=== PATIENT | male | born 1985 | race Caucasian/White ===

== ENCOUNTER 2017-03-30 12:03 | Emergency (ER) | payer BC, OTHER ==
[~2017-03-30] VITALS: Ht 167.6 cm; Wt 77.3 kg
[~2017-03-30 12:03] MED LIST: CEPH500C2 PO; OXYC1TAB3 PO; SULF-183 PO
[2017-03-30 12:07] VITALS: Ht 167.6 cm; Wt 77.3 kg
[2017-03-30] MEDS ORDERED: METH1TAB12 PO (12:41)
[2017-03-30] MEDS ORDERED: ZOLP10TA PO (12:41)
[2017-03-30] MEDS ORDERED: SODIUM CHLORIDE 0.9% 1000ML 1,000 ML IV STA (12:56)
[2017-03-30] MEDS ORDERED: KETOROLAC TROMETHAMINE 30 MG/ML VIAL IV STA (12:56)
[2017-03-30 13:14] LABS: BASO % 0.3 %; BASO ABS # 0.02 K/uL (0-0.2); COMPLETE YES; EOS % 0.1 %; HEMATOCRIT 46.6 % (42-52); IG% 0.3 %; LYMPH % 19.2 %; LYMPH ABS # 1.47 K/uL (1.2-3.4); MEAN CELL VOLUME 97.5 fL (80-100); MEAN CORPUSCULAR HEMOGLOBIN 35.4 pg (25-34); MEAN CORPUSCULAR HGB CONC 36.3 g/dl (32-36); MEAN PLATELET VOLUME 9.7 fL (7.4-10.4); MONO % 8.9 %; NEUT % 71.2 %; PLATELET COUNT 289 K/uL (130-400); RED BLOOD COUNT 4.78 M/uL (4.7-6.1); WHITE BLOOD COUNT 7.65 K/uL (4.8-10.8)
[2017-03-30 13:20] LABS: BUN/CREATININE RATIO 10.2 (10-20); CALCIUM 9.5 mg/dl (8.5-10.1); CREATININE 0.83 mg/dl (0.60-1.40); POTASSIUM 3.7 mmol/L (3.5-5.1)
[2017-03-30 14:28] LABS: URINE APPEARANCE CLEAR (CLEAR); URINE BILIRUBIN NEG (NEG); URINE COLOR YELLOW; URINE EPITHELIAL CELL AUTO 0-5 /lpf (0-5); URINE NITRITE NEG (NEG); URINE SPECIFIC GRAVITY 1.015 (1.000-1.030); UROBILINOGEN NEG (NEG); ZZUR CULT IF INDIC CLEAN CATCH NO
[2017-03-30 14:38] LABS: MANUAL MICROSCOPIC REQUIRED? NO; REVIEW REQ? NO
[2017-03-30] MEDS ORDERED: MoRPHine SULFATE 10 MG/ML CARP/VIAL IV STA (14:47)
[2017-03-30] MEDS ORDERED: ONDANSETRON INJ 2 MG/ML 2 ML VIAL IV STA (14:47)
--- NOTE | 2017-03-30 15:27 | DIAGNOSTIC IMAGING REPORT ---
ABDOMEN AND PELVIS CT WITH IV AND ORAL CONTRAST CT DOSE: 306.03 mGy.cm HISTORY: Right lower quadrant abdominal pain. TECHNIQUE: Multiaxial CT images of the abdomen and pelvis were performed following the use of intravenous and oral contrast. A dose lowering technique was utilized adhering to the principles of ALARA. COMPARISON STUDY: Abdomen and pelvis CT 11/05/2010. FINDINGS: There is a stable 4 mm nodule within the left lower lobe are therefore, this is considered to be benign. No pneumoperitoneum. No pneumatosis. No fractures within the visualized osseous structures. Hepatic steatosis. No hepatic or splenic masses. The gallbladder, pancreas, and adrenal glands are unremarkable. No retroperitoneal lymphadenopathy. Normal kidneys. No hydronephrosis. Bladder wall thickening. No bowel wall thickening or obstruction. Normal appendix measuring 6 mm in diameter. IMPRESSION: 1. No bowel wall thickening or obstruction. 2. Normal appendix. 3. Hepatic steatosis. 4. Bladder wall thickening. This could be due to underdistention. Recommend correlation with urinalysis. Electronically signed by: Earl Calhoun M.D. 03/30/2017 3:26 PM Dictated Date/Time: 03/30/2017 3:18 PM
[2017-03-30 16:26] VITALS: BP 154/99; PULSE 86; TEMP 37; O2SAT 95
--- NOTE | 2017-03-30 20:05 | EMERGENCY ROOM VISIT NOTE ---
History Report prepared by Tim: Diana Soto Under the Supervision of: Dr. Napoleon Gomez D.O. First contact with patient: 12:40 Chief Complaint: ABDOMINAL PAIN Stated Complaint: LOWER RT ABD. PAIN History of Present Illness The patient is a 31 year old male who presents to the Emergency Room with complaints of persistent RLQ abdominal pain starting 1 week ago. 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 This morning, he was bending over and the pain became very severe. He went to see his PCP and was sent to the ED over concerns of appendicitis. When he bends over, the pain goes down lower, but not quite down to his groin. The pain does not change with eating or drinking. He has been having some dysuria when he begins urinating for the past 4 days. He has lower back pain which is present with twisting, turning, and bending. He does not have any upper abdominal pain. He denies any testicular pain, penile discharge, swelling in the groin, or bulge in the groin. He still has his gallbladder and appendix. Source of History: patient Onset: 1 week ago Position: abdomen (RLQ) Quality: other (pain) Timing: other (persistent) Modifying Factors (Worsening): other (bending over) Associated Symptoms: + back pain, + urinary symptoms Note: Pt denies testicular pain, penile discharge, swelling in the groin, or bulge in the groin Review of Systems See HPI for pertinent positives & negatives. A total of 10 systems reviewed and were otherwise negative. Past Medical & Surgical Medical Problems: (1) Influenza With Pneumonia (2) Migraine Unspecified W/O Intractable Migraine (3) No Known Active Medical Problems (4) Post-operative infection (5) Postoperative infection (6) Tobacco Use Disorder Surgical Problems: (1) S/P ACL reconstruction Social History Problems: (1) S/P carpal tunnel release Family History Diabetes mellitus FH: heart disease Social History Smoking Status: Current Every Day Smoker Alcohol Use: occasionally Occupation Status: employed Current/Historical Medications Scheduled Methylphenidate Hcl (Ritalin), 20 MG PO BID Scheduled PRN Zolpidem Tartrate (Ambien), 5 MG PO HS PRN for Sleep Allergies Coded Allergies: BEE STING (Unverified Allergy, Intermediate, , 03/30/17) Physical Exam Vital Signs Date Time Temp Pulse Resp B/P (MAP) Pulse Ox O2 Delivery O2 Flow Rate FiO2 03/30/17 16:26 37.0 86 18 154/99 95 03/30/17 16:23 37.0 86 18 154/99 95 Room Air 03/30/17 14:10 92 16 164/92 96 Room Air 03/30/17 13:43 90 16 158/85 98 Room Air 03/30/17 12:07 37.0 113 20 154/82 96 Room Air Physical Exam GENERAL: sitting up in bed, alert, well appearing, well nourished, in mild distress, non-toxic EYE EXAM: normal conjunctiva OROPHARYNX: no exudate, no erythema, lips, buccal mucosa, and tongue normal and mucous membranes are moist NECK: supple, no nuchal rigidity, no adenopathy, non-tender LUNGS: Clear to auscultation. Normal chest wall mechanics HEART: no murmurs, S1 normal and S2 normal ABDOMEN: abdomen soft, minimal tenderness to the RLQ, normo-active bowel sounds , no masses, no rebound or guarding. BACK: Back is symmetrical on inspection and there is no deformity, no midline tenderness, no CVA tenderness. : normal external circumcised genitalia, testicles nontender, no appreciable mass. SKIN: no rashes and no bruising UPPER EXTREMITIES: upper extremities are grossly normal. LOWER EXTREMITIES: No pitting edema. NEURO EXAM: Normal sensorium, cranial nerves II-XII grossly intact, normal speech, no gross weakness of arms, no gross weakness of legs. Medical Decision & Procedures ER Provider Diagnostic Interpretation: Radiology results as stated below per my review and the radiologist's interpretation: ABDOMEN AND PELVIS CT WITH IV AND ORAL CONTRAST CT DOSE: 306.03 mGy.cm HISTORY: Right lower quadrant abdominal pain. TECHNIQUE: Multiaxial CT images of the abdomen and pelvis were performed following the use of intravenous and oral contrast. A dose lowering technique was utilized adhering to the principles of ALARA. COMPARISON STUDY: Abdomen and pelvis CT 11/05/2010. FINDINGS: There is a stable 4 mm nodule within the left lower lobe are therefore, this is considered to be benign. No pneumoperitoneum. No pneumatosis. No fractures within the visualized osseous structures. Hepatic steatosis. No hepatic or splenic masses. The gallbladder, pancreas, and adrenal glands are unremarkable. No retroperitoneal lymphadenopathy. Normal kidneys. No hydronephrosis. Bladder wall thickening. No bowel wall thickening or obstruction. Normal appendix measuring 6 mm in diameter. IMPRESSION: 1. No bowel wall thickening or obstruction. 2. Normal appendix. 3. Hepatic steatosis. 4. Bladder wall thickening. This could be due to underdistention. Recommend correlation with urinalysis. Electronically signed by: Earl Calhoun M.D. 03/30/2017 3:26 PM Dictated Date/Time: 03/30/2017 3:18 PM Laboratory Results 03/30/17 12:50 Red Blood Count 4.78, Mean Corpuscular Volume 97.5, Mean Corpuscular Hemoglobin 35.4, Mean Corpuscular Hemoglobin Concent 36.3, Mean Platelet Volume 9.7, Neutrophils (%) (Auto) 71.2, Lymphocytes (%) (Auto) 19.2, Monocytes (%) (Auto) 8.9, Eosinophils (%) (Auto) 0.1, Basophils (%) (Auto) 0.3, Neutrophils # (Auto) 5.45, Lymphocytes # (Auto) 1.47, Monocytes # (Auto) 0.68, Eosinophils # (Auto) 0.01, Basophils # (Auto) 0.02 03/30/17 12:50 Test 03/30/17 12:50 03/30/17 13:18 White Blood Count 7.65 K/uL (4.8-10.8) Red Blood Count 4.78 M/uL (4.7-6.1) Hemoglobin 16.9 g/dL (14.0-18.0) Hematocrit 46.6 % (42-52) Mean Corpuscular Volume 97.5 fL (80-100) Mean Corpuscular Hemoglobin 35.4 pg (25-34) Mean Corpuscular Hemoglobin Concent 36.3 g/dl (32-36) Platelet Count 289 K/uL (130-400) Mean Platelet Volume 9.7 fL (7.4-10.4) Neutrophils (%) (Auto) 71.2 % Lymphocytes (%) (Auto) 19.2 % Monocytes (%) (Auto) 8.9 % Eosinophils (%) (Auto) 0.1 % Basophils (%) (Auto) 0.3 % Neutrophils # (Auto) 5.45 K/uL (1.4-6.5) Lymphocytes # (Auto) 1.47 K/uL (1.2-3.4) Monocytes # (Auto) 0.68 K/uL (0.11-0.59) Eosinophils # (Auto) 0.01 K/uL (0-0.5) Basophils # (Auto) 0.02 K/uL (0-0.2) RDW Standard Deviation 43.2 fL (36.4-46.3) RDW Coefficient of Variation 12.1 % (11.5-14.5) Immature Granulocyte % (Auto) 0.3 % Immature Granulocyte # (Auto) 0.02 K/uL (0.00-0.02) Anion Gap 7.0 mmol/L (3-11) Est Creatinine Clear Calc Drug Dose 126.2 ml/min Estimated GFR () 135.9 Estimated GFR (Non- 117.2 BUN/Creatinine Ratio 10.2 (10-20) Calcium Level 9.5 mg/dl (8.5-10.1) Total Bilirubin 0.3 mg/dl (0.2-1) Direct Bilirubin 0.2 mg/dl (0-0.2) Aspartate Amino Transf (AST/SGOT) 64 U/L (15-37) Alanine Aminotransferase (ALT/SGPT) 88 U/L (12-78) Alkaline Phosphatase 61 U/L (45-117) Total Protein 7.4 gm/dl (6.4-8.2) Albumin 3.9 gm/dl (3.4-5.0) Lipase 81 U/L (73-393) Urine Color YELLOW Urine Appearance CLEAR (CLEAR) Urine pH 8.0 (4.5-7.5) Urine Specific [place] 1.015 (1.000-1.030) Urine Protein NEG (NEG) Urine Glucose (UA) NEG (NEG) Urine Ketones NEG (NEG) Urine Occult Blood NEG (NEG) Urine Nitrite NEG (NEG) Urine Bilirubin NEG (NEG) Urine Urobilinogen NEG (NEG) Urine Leukocyte Esterase NEG (NEG) Urine WBC (Auto) 0 /hpf (0-5) Urine RBC (Auto) 0-4 /hpf (0-4) Urine Hyaline Casts (Auto) 0 /lpf (0-5) Urine Epithelial Cells (Auto) 0-5 /lpf (0-5) Urine Bacteria (Auto) NEG (NEG) Laboratory results per my review. Medications Administered Medications (Trade) Dose Ordered Sig/Dorene Route Start Time Stop Time Status Last Admin Dose Admin Ketorolac Tromethamine (Toradol Inj) 30 mg NOW STAT IV 03/30/17 12:56 03/30/17 12:58 DC 03/30/17 13:27 30 MG Sodium Chloride 1,000 ml @ 999 mls/hr Q1H1M STAT IV 03/30/17 12:56 03/30/17 13:56 DC 03/30/17 13:26 999 MLS/HR Morphine Sulfate (MoRPHine SULFATE INJ) 6 mg NOW STAT IV 03/30/17 14:47 03/30/17 14:48 DC 03/30/17 16:08 6 MG Ondansetron HCl (Zofran Inj) 4 mg NOW STAT IV 03/30/17 14:47 03/30/17 14:48 DC 03/30/17 16:08 4 MG ED Course ED COURSE: Vital signs were reviewed and showed tachycardia, hypertension. The patients medical record was reviewed The above diagnostic studies were performed and reviewed. ED treatments and interventions as stated above. 1252: The patient was evaluated in room A9B. A complete history and physical examination was performed. 1256: NSS 1000 ml @ 999 mls/hr IV, Toradol Inj 30 mg IV. 1447: Zofran Inj 4 mg IV, Morphine Sulfate 6 mg IV. 1549: Upon reevaluation, the patient is resting comfortably. I discussed my findings with the patient and he understands and agrees with the treatment plan. Based on the patients age, coexisting illnesses, exam and lab findings the decision to treat as an outpatient was made. The patient remained stable while under my care. The patient appeared well at the time of discharge. Medical Decision Differential diagnoses includes but is not limited to gastritis, peptic ulcer disease, GERD, gallbladder disease, pancreatitis, small bowel obstruction, acute coronary syndrome, pericarditis, ischemic bowel, irritable bowel disease, irritable bowel syndrome, appendicitis, diverticulitis, malignancy, hernia, urinary tract infection, torsion, perforation, trauma, infectious. Patient is a 31-year-old male that presents to ER for lower quadrant abdominal pain. CBC along with BMP was unremarkable. Mild transaminitis. Bilirubin was unremarkable. He does drink about one to 2 beers per day. Favor likely cause of transaminitis. Lipase is normal. UA was negative. CT of abdomen and pelvis currently unremarkable for appendicitis and kidney stones. Exam and history does suggest that the back pain is likely musculoskeletal. Patient was updated in regards to his findings. He was given a dose of morphine. He was discharged follow-up with PCP for abdominal pain and muscle skeletal back pain. Discussed with Pt concerning signs and symptoms to watch out for. Pt was instructed to follow up with their PCP and discussed with the patient their option to return to the ED at anytime for persistent or worsening symptoms. The appropriate anticipatory guidance and out-patient management, including indications for return to the emergency department, were explained at length to the patient and understood. Medication Reconcilliation Current Medication List: was personally reviewed by me Blood Pressure Screening Patient's blood pressure: Elevated blood pressure Blood pressure disposition: Elevated BP felt to be situational Impression Primary Impression: Abdominal pain Additional Impression: Musculoskeletal back pain Scribe Attestation The scribe's documentation has been prepared under my direction and personally reviewed by me in its entirety. I confirm that the note above accurately reflects all work, treatment, procedures, and medical decision making performed by me. Departure Information Dispostion Home / Self-Care Referrals No Doctor, Assigned (PCP) Forms Call Back Authorization, HOME CARE DOCUMENTATION FORM, IMPORTANT VISIT INFORMATION Patient Instructions Abdominal Pain - [facility], Back Pain - [facility], [facility] Additional Instructions Please follow up with your primary care doctor with in the next 24 hours. Any worsening of your symptoms, please return to the ED immediately. This includes any fevers greater than 100.4, worsening pain, chest pain, shortness breath, persistent nausea, vomiting, unable to eat or drink, or any other concerning signs or symptoms from your standpoint. Please take Tylenol or Motrin as needed for pain. Please refrain from any heavy lifting. Problem Qualifiers Primary Impression: Abdominal pain Abdominal location: unspecified location Qualified Codes: R10.9 - Unspecified abdominal pain
== END 2017-03-30 16:30 | disposition home or self-care (01) ==
LOC: C.EDB 12:04 → C.EDA 16:30
DX: R10.31 Right lower quadrant pain (principal); M54.9 Dorsalgia, unspecified; M79.1 Myalgia; Z87.01 Personal history of pneumonia (recurrent); G43.909 Migraine, unspecified, not intractable, without status migrainosus; F17.210 Nicotine dependence, cigarettes, uncomplicated; Z83.3 Family history of diabetes mellitus; Z82.49 Family history of ischemic heart disease and other diseases of the circulatory system; Z79.899 Other long term (current) drug therapy

== ENCOUNTER 2017-08-12 06:57 | Emergency (ER) | payer OTHER ==
[~2017-08-12] VITALS: Ht 167.6 cm; Wt 80.9 kg
[~2017-08-12 06:57] MED LIST changes: -CEPH500C2 PO; +METH1TAB12 PO; -OXYC1TAB3 PO; -SULF-183 PO; +ZOLP10TA PO
[2017-08-12 07:01] VITALS: TEMP 36.4; Ht 167.6 cm; Wt 80.9 kg
[2017-08-12] MEDS ORDERED: SODIUM CHLORIDE 0.9% 1000ML 1,000 ML IV STA (07:25)
[2017-08-12] MEDS ORDERED: SODIUM CHLORIDE 0.9% 500ML 500 ML IV STA (07:25)
[2017-08-12] MEDS ORDERED: ONDANSETRON INJ 2 MG/ML 2 ML VIAL IV STA (07:25)
[2017-08-12] MEDS ORDERED: MoRPHine SULFATE 4 MG/ML 1 ML CARP\\VIAL IV STA (07:25)
--- NOTE | 2017-08-12 07:35 | EMERGENCY ROOM VISIT NOTE ---
History Report prepared by Tim: Jan Martinez Under the Supervision of: Dr. Cynthia Greene M.D. First contact with patient: 07:16 Chief Complaint: ABDOMINAL PAIN Stated Complaint: STOMACH History of Present Illness The patient is a 31 year old male who presents to the Emergency Room with complaints of persistent right upper quadrant abdominal pain for the past 8 months. He notes that the pain is worsened with sitting for a long time and eating fatty foods. The patient additionally states that every morning he vomits and has diarrhea, though he states that this morning it was worse than usual. He states that 4 months ago he had a CT scan and saw his PCP, and they thought that he had an acid build up. He reports that he was put on omeprazole, and he states that he was more nauseous after being put on that. The patient states that he has an appointment with GI next week for a scope. He states that he occasionally has hematemesis. The patient additionally notes that he often gets hot and feverish. He has not had an ultrasound done of his gallbladder. Source of History: patient Onset: 8 months ago Position: abdomen (RUQ) Timing: other (persistent) Modifying Factors (Worsening): other (sitting upright for a long time and eating fatty foods) Associated Symptoms: + nausea, + vomiting, + diarrhea Note: Associated symptoms: Occasional hematemesis Review of Systems See HPI for pertinent positives & negatives. A total of 10 systems reviewed and were otherwise negative. Past Medical & Surgical Medical Problems: (1) Influenza With Pneumonia (2) Migraine Unspecified W/O Intractable Migraine (3) No Known Active Medical Problems (4) Post-operative infection (5) Postoperative infection (6) Tobacco Use Disorder Surgical Problems: (1) S/P ACL reconstruction Social History Problems: (1) S/P carpal tunnel release Family History Cancer Diabetes mellitus FH: heart disease Hypertension Social History Smoking Status: Current Every Day Smoker Alcohol Use: occasionally Marital Status: single Housing Status: lives with significant other Occupation Status: employed Current/Historical Medications Scheduled Methylphenidate Hcl (Ritalin), 20 MG PO BID Pantoprazole (Protonix), 40 MG PO DAILY Scheduled PRN Ranitidine Hcl (Zantac), 150 MG PO BID PRN for gastritis Zolpidem Tartrate (Ambien), 5 MG PO HS PRN for Sleep Allergies Coded Allergies: BEE STING (Unverified Allergy, Intermediate, , 08/12/17) Physical Exam Vital Signs Date Time Temp Pulse Resp B/P (MAP) Pulse Ox O2 Delivery O2 Flow Rate FiO2 08/12/17 14:08 78 18 134/73 98 08/12/17 11:13 70 20 134/94 96 Room Air 08/12/17 09:57 77 24 08/12/17 09:27 67 8 97 08/12/17 09:23 96 24 143/86 97 Room Air 08/12/17 09:23 143/86 08/12/17 08:54 147/71 08/12/17 08:27 101 11 08/12/17 08:16 78 08/12/17 07:01 36.4 96 18 166/100 96 Room Air Physical Exam Vital signs reviewed. General: Well-appearing male, in no significant distress. HEENT: No scleral icterus, PERRLA, neck supple. Atraumatic. Cardiovascular: Regular rate and rhythm, no extra sounds. Pulmonary: Clear to auscultation bilaterally, normal work of breathing. Abdomen: Mild right upper quadrant tenderness. Soft, nondistended, positive bowel sounds. Musculoskeletal: Atraumatic, no peripheral edema. Neurologic: Patient awake alert and oriented x 3 Skin: Warm, dry, no rash Medical Decision & Procedures ER Provider Diagnostic Interpretation: Radiology results as stated below per my review and radiologist interpretation: ABDOMINAL ULTRASOUND, RIGHT UPPER QUADRANT HISTORY: RUQ pain, vomiting. COMPARISON: CT of the abdomen and pelvis March 30, 2017. FINDINGS: Hepatic echogenicity is increased consistent with fatty infiltration. No hepatic lesions are identified and there is no biliary ductal dilatation. The gallbladder is normal. There are no gallstones. Pancreatic body is normal. Head and tail are partially obscured. There is no right hydronephrosis. IMPRESSION: 1. Fatty liver. 2. No gallstones or biliary ductal dilatation. Electronically signed by: Joey Alfaro M.D. 08/12/2017 8:55 AM Dictated Date/Time: 08/12/2017 8:54 AM NUCLEAR HEPATOBILIARY SCAN CLINICAL HISTORY: Right upper quadrant abdominal pain. COMPARISON STUDY: Abdominal ultrasound dated 08/12/2017. TECHNIQUE: Dynamic images of the liver and anterior abdomen were obtained every 5 minutes for a total of 40 minutes following the IV administration of 5.5mCi of technetium 99m Choletec. FINDINGS: The hepatobiliary scan shows prompt and homogeneous hepatic uptake. There is visualized activity within the intra and extrahepatic biliary tree at 10 minutes, and within the gallbladder at 10 minutes. There is normal biliary to bowel transit, with small bowel visualized by 30 minutes. IMPRESSION: Unremarkable nuclear hepatobiliary scan. There is no scintigraphic evidence of cholecystitis. Electronically signed by: Navi Hernandez M.D. 08/12/2017 1:28 PM Dictated Date/Time: 08/12/2017 1:26 PM Laboratory Results 08/12/17 07:15 Red Blood Count 4.84, Mean Corpuscular Volume 97.9, Mean Corpuscular Hemoglobin 36.2, Mean Corpuscular Hemoglobin Concent 36.9, Mean Platelet Volume 10.0, Neutrophils (%) (Auto) 60.7, Lymphocytes (%) (Auto) 26.1, Monocytes (%) (Auto) 11.6, Eosinophils (%) (Auto) 0.8, Basophils (%) (Auto) 0.6, Neutrophils # (Auto ) 3.94, Lymphocytes # (Auto) 1.69, Monocytes # (Auto) 0.75, Eosinophils # (Auto ) 0.05, Basophils # (Auto) 0.04 08/12/17 07:15 Test 08/12/17 07:15 08/12/17 10:20 White Blood Count 6.48 K/uL (4.8-10.8) Red Blood Count 4.84 M/uL (4.7-6.1) Hemoglobin 17.5 g/dL (14.0-18.0) Hematocrit 47.4 % (42-52) Mean Corpuscular Volume 97.9 fL (80-100) Mean Corpuscular Hemoglobin 36.2 pg (25-34) Mean Corpuscular Hemoglobin Concent 36.9 g/dl (32-36) Platelet Count 291 K/uL (130-400) Mean Platelet Volume 10.0 fL (7.4-10.4) Neutrophils (%) (Auto) 60.7 % Lymphocytes (%) (Auto) 26.1 % Monocytes (%) (Auto) 11.6 % Eosinophils (%) (Auto) 0.8 % Basophils (%) (Auto) 0.6 % Neutrophils # (Auto) 3.94 K/uL (1.4-6.5) Lymphocytes # (Auto) 1.69 K/uL (1.2-3.4) Monocytes # (Auto) 0.75 K/uL (0.11-0.59) Eosinophils # (Auto) 0.05 K/uL (0-0.5) Basophils # (Auto) 0.04 K/uL (0-0.2) RDW Standard Deviation 44.8 fL (36.4-46.3) RDW Coefficient of Variation 12.4 % (11.5-14.5) Immature Granulocyte % (Auto) 0.2 % Immature Granulocyte # (Auto) 0.01 K/uL (0.00-0.02) Anion Gap 9.0 mmol/L (3-11) Est Creatinine Clear Calc Drug Dose 115.0 ml/min Estimated GFR () 126.3 Estimated GFR (Non- 109.0 BUN/Creatinine Ratio 12.2 (10-20) Calcium Level 9.5 mg/dl (8.5-10.1) Magnesium Level 2.1 mg/dl (1.8-2.4) Total Bilirubin 0.5 mg/dl (0.2-1) Direct Bilirubin 0.2 mg/dl (0-0.2) Aspartate Amino Transf (AST/SGOT) 122 U/L (15-37) Alanine Aminotransferase (ALT/SGPT) 157 U/L (12-78) Alkaline Phosphatase 63 U/L (45-117) Total Protein 7.8 gm/dl (6.4-8.2) Albumin 4.3 gm/dl (3.4-5.0) Lipase 104 U/L (73-393) Hepatitis A IgM Antibody NON-REACTIVE (NON-REACTIVE) Hepatitis B Surface Antigen NEG (NEG) Hepatitis B Core IgM Antibody NON-REACTIVE (NON-REACTIVE) Hepatitis C Antibody NEG (NEG) Urine Color YELLOW Urine Appearance TURBID (CLEAR) Urine pH 8.5 (4.5-7.5) Urine Specific [place] 1.024 (1.000-1.030) Urine Protein NEG (NEG) Urine Glucose (UA) NEG (NEG) Urine Ketones TRACE (NEG) Urine Occult Blood NEG (NEG) Urine Nitrite NEG (NEG) Urine Bilirubin NEG (NEG) Urine Urobilinogen NEG (NEG) Urine Leukocyte Esterase NEG (NEG) Urine WBC (Auto) 0 /hpf (0-5) Urine RBC (Auto) 0-4 /hpf (0-4) Urine Hyaline Casts (Auto) 0 /lpf (0-5) Urine Epithelial Cells (Auto) 0-5 /lpf (0-5) Urine Bacteria (Auto) NEG (NEG) Laboratory results per my review. Medications Administered Medications (Trade) Dose Ordered Sig/Dorene Route Start Time Stop Time Status Last Admin Dose Admin Sodium Chloride 500 ml @ 999 mls/hr Q31M STAT IV 08/12/17 07:25 08/12/17 07:55 DC 08/12/17 07:25 999 MLS/HR Sodium Chloride 1,000 ml @ 125 mls/hr Q8H STAT IV 08/12/17 07:25 08/12/17 14:27 DC 08/12/17 07:25 125 MLS/HR Morphine Sulfate (MoRPHine SULFATE INJ) 4 mg NOW STAT IV 08/12/17 07:25 08/12/17 07:28 DC 08/12/17 08:03 4 MG Ondansetron HCl (Zofran Inj) 4 mg NOW STAT IV 08/12/17 07:25 08/12/17 07:28 DC 08/12/17 08:03 4 MG ED Course 0720: Past medical records reviewed. The patient was evaluated in room B12. A complete history and physical examination was performed. 0725: Zofran 4mg IV, Morphine Sulfate 4mg IV, Sodium Chloride 1000 ml @ 125 mls/ hr IV, Sodium Chloride 500 ml @ 999 mls/hr IV 1020: I reevaluated the patient, and I updated him on his treatment plan. 1349: Upon reevaluation, the patient appeared to have improvement of his symptoms. I discussed findings with him. He verbalized agreement of the treatment plan. He was discharged home. Medical Decision Differential diagnosis: Etiologies such as appendicitis, diverticulitis, PUD, biliary pathology, UTI, pancreatitis, obstruction, mesenteric ischemia, aortic pathology, infections, inflammatory bowel disease, renal colic, as well as others were entertained. This patient was evaluated and appeared to be in no significant distress. IV access was obtained and laboratory work was drawn. Patient was placed on the youth nutritional monitor and found to be in a normal sinus rhythm. Patient was hydrated with normal saline solution, given IV morphine and Zofran for his discomfort. Ultrasound of right upper quadrant was performed and reveals no evidence of acute cholecystitis. Patient does have mildly elevated liver enzymes but no other obstructive pathology. A HIDA scan was performed and is largely normal. The patient was in the emergency department for multiple hours waiting the nuclear medicine study. He did not require any additional pain medication. As the symptoms have been progressive over the last several months, I have advised that he follow-up with gastroenterology as scheduled next week for endoscopy. He was placed on Protonix 40 mg daily with Zantac 150 twice a day as needed. He did not tolerate Prilosec while in the past, Protonix may be better. He was advised to maintain a bland diet, avoid alcohol, soda and coffee. He will avoid greasy and spicy foods. The patient will return to the ER for worsening of symptoms or any medical concerns. Medication Reconcilliation Current Medication List: was personally reviewed by me Blood Pressure Screening Patient's blood pressure: Elevated blood pressure Blood pressure disposition: Elevated BP felt to be situational Impression Primary Impression: Gastritis Scribe Attestation The scribe's documentation has been prepared under my direction and personally reviewed by me in its entirety. I confirm that the note above accurately reflects all work, treatment, procedures, and medical decision making performed by me. Departure Information Dispostion Home / Self-Care Prescriptions Ranitidine Hcl (ZANTAC) 150 Mg Tab 150 MG PO BID Y for gastritis, #60 TAB Prov: Cynthia Greene M.D. 08/12/17 Pantoprazole (Protonix) 40 Mg Tab 40 MG PO DAILY, #30 TAB Prov: Cynthia Greene M.D. 08/12/17 Referrals No Doctor, Assigned (PCP) Forms Call Back Authorization, HOME CARE DOCUMENTATION FORM, IMPORTANT VISIT INFORMATION Patient Instructions Gastritis Tx, [facility] Additional Instructions Diagnosis: Gastritis Protonix 40 mg daily. Zantac 150 mg twice daily as needed for gastritis. Please drink plenty of clear fluids. Avoid alcohol, ibuprofen, aspirin, naprosyn Avoid greasy and spicy foods. Follow up with your GI doctor this week for reevaluation. Return to the ED for worsening of symptoms or any medical concerns.
[2017-08-12 07:42] LABS: BASO % 0.6 %; BASO ABS # 0.04 K/uL (0-0.2); EOS % 0.8 %; EOS ABS # 0.05 K/uL (0-0.5); HEMATOCRIT 47.4 % (42-52); HEMOGLOBIN 17.5 g/dL (14.0-18.0); IG# 0.01 K/uL (0.00-0.02); LYMPH % 26.1 %; LYMPH ABS # 1.69 K/uL (1.2-3.4); MEAN CELL VOLUME 97.9 fL (80-100); MEAN CORPUSCULAR HEMOGLOBIN 36.2 pg (25-34); MEAN CORPUSCULAR HGB CONC 36.9 g/dl (32-36); MONO % 11.6 %; MONO ABS # 0.75 K/uL (0.11-0.59); NEUT % 60.7 %; NEUT ABS # 3.94 K/uL (1.4-6.5); PLATELET COUNT 291 K/uL (130-400); RED CELL DISTRIBUTION WIDTH CV 12.4 % (11.5-14.5); RED CELL DISTRIBUTION WIDTH SD 44.8 fL (36.4-46.3); WHITE BLOOD COUNT 6.48 K/uL (4.8-10.8)
[2017-08-12 07:49] LABS: ALBUMIN 4.3 gm/dl (3.4-5.0); CALCIUM 9.5 mg/dl (8.5-10.1); CREATININE 0.93 mg/dl (0.60-1.40); POTASSIUM 3.7 mmol/L (3.5-5.1)
[2017-08-12 07:52] LABS: TOTAL PROTEIN 7.8 gm/dl (6.4-8.2)
--- NOTE | 2017-08-12 08:57 | DIAGNOSTIC IMAGING REPORT ---
ABDOMINAL ULTRASOUND, RIGHT UPPER QUADRANT HISTORY: RUQ pain, vomiting. COMPARISON: CT of the abdomen and pelvis March 30, 2017. FINDINGS: Hepatic echogenicity is increased consistent with fatty infiltration. No hepatic lesions are identified and there is no biliary ductal dilatation. The gallbladder is normal. There are no gallstones. Pancreatic body is normal. Head and tail are partially obscured. There is no right hydronephrosis. IMPRESSION: 1. Fatty liver. 2. No gallstones or biliary ductal dilatation. Electronically signed by: Joey Alfaro M.D. 08/12/2017 8:55 AM Dictated Date/Time: 08/12/2017 8:54 AM
[2017-08-12 12:35] LABS: HEP C IGG 13 YRS+OLDER_RFLX NEG (NEG)
--- NOTE | 2017-08-12 13:29 | DIAGNOSTIC IMAGING REPORT ---
NUCLEAR HEPATOBILIARY SCAN CLINICAL HISTORY: Right upper quadrant abdominal pain. COMPARISON STUDY: Abdominal ultrasound dated 08/12/2017. TECHNIQUE: Dynamic images of the liver and anterior abdomen were obtained every 5 minutes for a total of 40 minutes following the IV administration of 5.5mCi of technetium 99m Choletec. FINDINGS: The hepatobiliary scan shows prompt and homogeneous hepatic uptake. There is visualized activity within the intra and extrahepatic biliary tree at 10 minutes, and within the gallbladder at 10 minutes. There is normal biliary to bowel transit, with small bowel visualized by 30 minutes. IMPRESSION: Unremarkable nuclear hepatobiliary scan. There is no scintigraphic evidence of cholecystitis. Electronically signed by: Navi Hernandez M.D. 08/12/2017 1:28 PM Dictated Date/Time: 08/12/2017 1:26 PM
[2017-08-12] MEDS ORDERED: PANT40TA PO (13:34)
[2017-08-12] MEDS ORDERED: RANI150T3 PO (13:37)
[2017-08-12 14:08] VITALS: BP 134/73; PULSE 78; O2SAT 98
[2017-08-13 03:00] LABS: HEPATITIS A IGM TC 51813E NON-REACTIVE (NON-REACTIVE); HEPATITIS B CORE IGM TC51854R NON-REACTIVE (NON-REACTIVE)
== END 2017-08-12 14:11 | disposition home or self-care (01) ==
LOC: C.EDB 06:58
DX: K29.70 Gastritis, unspecified, without bleeding (principal); Z83.3 Family history of diabetes mellitus; Z82.49 Family history of ischemic heart disease and other diseases of the circulatory system; F17.200 Nicotine dependence, unspecified, uncomplicated; K76.0 Fatty (change of) liver, not elsewhere classified

== ENCOUNTER → 2017-08-27 | Day surgery (SDC) | payer OTHER ==
[2017-08-17 09:09] VITALS: BMI 27.0
[~2017-08-27] VITALS: Ht 167.6 cm; Wt 77.3 kg
[~2017-08-27] MED LIST changes: +EPP3/2 IM; +FENTANYL CITRATE INJ 50 MCG/1 ML 2 ML VIAL ONE; -METH1TAB12 PO; +MIDAZOLAM HCL 1 MG/ML 2ML VIAL ONE; +PROPOFOL IV EMULSION 10 MG/ML 20 ML VIAL IV ONE; +RTL20 PO; +SODIUM CHLORIDE 0.9% 500ML 500 ML IV ONE
[2017-08-27 13:59] VITALS: Ht 167.6 cm; Wt 77.3 kg
--- NOTE | 2017-08-27 14:37 | Endo History and Physical ---
History & Physical Date of Service: Aug 27, 2017. Chief Complaint: NAUSEA Referring Physician: DR. ANN History of Present Illness nausea Past Surgical History Hx Cardiac Surgery: No Hx Internal Defibrillator: No Hx Pacemaker: No Hx Abdominal Surgery: No Hx of Implantable Prosthesis: No Hx Post-Op Nausea and Vomiting: No Hx Cancer Surgery: No Hx Orthopedic: Yes (RT ACL REPAIR, LEFT MENISCUS REPAIR, RT/LEFT CTR, LEFT HAND SURGERY) Hx Urinary Tract Surgery: No Family History None Social History Smoking Status: Current Every Day Smoker Hx Substance Use: No Hx Alcohol Use: Yes (1-2 DRINKS DAILY) Allergies Coded Allergies: BEE STING (Verified Allergy, Intermediate, ANAPHYLAXIS, 08/27/17) NO KNOWN DRUG ALLERGIES (Verified Allergy, Unknown, ., 08/17/17) Current Medications Reported Home Medications Medications Dose Route/Sig Max Daily Dose Days Date Category Ambien (Zolpidem Tartrate) 10 Mg Tab 10 Mg PO HS PRN 08/17/17 Reported Ritalin (Methylphenidate HCl) 20 Mg Tab 20 Mg PO BID 08/17/17 Reported Epipen (Epinephrine) 0.3 Mg/0.3 Ml Inj 0.3 Mg IM UD 08/17/17 Reported Vital Signs Weight (Kilograms): 77.27 Height (Feet): 5 Height (Inches): 6 Date Time Temp Pulse Resp B/P (MAP) Pulse Ox O2 Delivery O2 Flow Rate FiO2 08/27/17 14:00 36.6 81 18 139/92 (108) 97 Room Air Physical Exam General Appearance: WD/WN, no apparent distress Respiratory/Chest: Auscultation: breath sounds normal Cardiovascular: Heart Auscultation: RRR Abdomen: Bowel Sounds: normal Inspection & Palpation: soft, non-distended, no tenderness, guarding & rebound Assessment and Plan EGD
--- NOTE | 2017-08-27 14:57 | GI REPORT ---
Procedure Date: 08/27/2017 2:08 PM Procedure: Upper GI endoscopy Indications: Nausea Medicines: Propofol per Anesthesia Complications: No immediate complications. Estimated blood loss: Minimal. Estimated Blood Loss: Estimated blood loss was minimal. Procedure: Pre-Anesthesia Assessment: - Prior to the procedure, a History and Physical was performed, and patient medications and allergies were reviewed. The patient's tolerance of previous anesthesia was also reviewed. The risks and benefits of the procedure and the sedation options and risks were discussed with the patient. All questions were answered, and informed consent was obtained. Prior Anticoagulants: The patient has taken no previous anticoagulant or antiplatelet agents. ASA Grade Assessment: II - A patient with mild systemic disease. After reviewing the risks and benefits, the patient was deemed in satisfactory condition to undergo the procedure. After obtaining informed consent, the endoscope was passed under direct vision. Throughout the procedure, the patient's blood pressure, pulse, and oxygen saturations were monitored continuously. The scope was introduced through the mouth, and advanced to the second part of duodenum. The upper GI endoscopy was accomplished without difficulty. The patient tolerated the procedure well. Findings: The examined esophagus was normal. A small hiatal hernia was found. The proximal extent of the gastric folds (end of tubular esophagus) was 38 cm from the incisors. The hiatal narrowing was 40 cm from the incisors. The Z-line was 38 cm from the incisors. Diffuse moderate inflammation characterized by congestion (edema) and erythema was found in the gastric body. Biopsies were taken with a cold forceps for histology. Estimated blood loss was minimal. Verification of patient identification for the specimen was done by the physician and sound technician using the patient's name and medical record number. Diffuse mildly erythematous mucosa without bleeding was found in the gastric body and in the gastric antrum. Biopsies were taken with a cold forceps for histology. Estimated blood loss was minimal. Verification of patient identification for the specimen was done by the physician and sound technician using the patient's name and medical record number. The examined duodenum was normal. Biopsies for histology were taken with a cold forceps for evaluation of celiac disease. Estimated blood loss was minimal. Verification of patient identification for the specimen was done by the physician and sound technician using the patient's name and medical record number. The cardia and gastric fundus were normal on retroflexion. Retained gastric contents are not identified on this exam. Impression: - Normal esophagus. - Small hiatal hernia. - Gastritis. Biopsied. - Erythematous mucosa in the gastric body and antrum. Biopsied. - Normal examined duodenum. Biopsied. Recommendation: - Discharge patient to home (ambulatory). - Resume regular diet. - Continue present medications. - Await pathology results. - Return to GI clinic as previously scheduled. MD Kobe Mcnally MD 08/27/2017 2:56:37 PM This report has been signed electronically. Note Initiated On: 08/27/2017 2:08 PM I attest to the content of the Intraoperative Record and orders documented therein, exceptions below
--- NOTE | 2017-08-27 15:01 | Anesthesiology Progress Note ---
Anesthesia Post Op Note Date & Time Aug 27, 2017 at 15:01 Vital Signs Pain Intensity: 0 Vital Signs Past 12 Hours Date Time Temp Pulse Resp B/P (MAP) Pulse Ox O2 Delivery O2 Flow Rate FiO2 08/27/17 14:00 36.6 81 18 139/92 (108) 97 Room Air Notes Mental Status: alert / awake / arousable, participated in evaluation Pt Amnestic to Procedure: Yes Nausea / Vomiting: adequately controlled Pain: adequately controlled Airway Patency, RR, SpO2: stable & adequate BP & HR: stable & adequate Hydration State: stable & adequate Anesthetic Complications: no major complications apparent
--- NOTE | 2017-08-27 15:15 | Discharge Instructions ---
Endoscopy Patient Instructions Date / Procedure(s) Performed Aug 27, 2017. EGD Allergy Information Coded Allergies: BEE STING (Verified Allergy, Intermediate, ANAPHYLAXIS, 08/27/17) NO KNOWN DRUG ALLERGIES (Verified Allergy, Unknown, ., 08/17/17) Discharge Date / Findings Aug 27, 2017. gastritis HH Medication Instructions Restart Stopped Medication(s): Reported Home Medications Medications Dose Route/Sig Max Daily Dose Days Date Category Ambien (Zolpidem Tartrate) 10 Mg Tab 10 Mg PO HS PRN 08/17/17 Reported Ritalin (Methylphenidate HCl) 20 Mg Tab 20 Mg PO BID 08/17/17 Reported Epipen (Epinephrine) 0.3 Mg/0.3 Ml Inj 0.3 Mg IM UD 08/17/17 Reported Reported Home Medications Medications Dose Route/Sig Max Daily Dose Days Date Category Ambien (Zolpidem Tartrate) 10 Mg Tab 10 Mg PO HS PRN 08/17/17 Reported Ritalin (Methylphenidate HCl) 20 Mg Tab 20 Mg PO BID 08/17/17 Reported Epipen (Epinephrine) 0.3 Mg/0.3 Ml Inj 0.3 Mg IM UD 08/17/17 Reported Provider Instructions Activity Restrictions - No exercising or heavy lifting for 24 hours. - Do not drink alcohol the day of the procedure. - Do not drive a car or operate machinery until the day after the procedure. - Do not make any important decisions or sign important papers in 24 hours after the procedure. Following Day: - Return to full activity which may include returning to work/school. Diet Start your diet with liquids and light foods (jello, soup, juice, toast). Then eat your usual diet if not nauseated. Treatment For Common After Affects For mild abdominal pain, bloating, or excessive gas: - Rest - Eat lightly - Lie on right side Follow-Up Information Follow-up with DR. ANN as scheduled Anesthesia Information What You Should Know You have had a procedure that required some medicine to reduce anxiety and discomfort. This treatment is called moderate sedation. After receiving the treatment, you may be sleepy, but you will be able to breathe on your own. The effects of the treatment may last for several hours. Follow these instructions along with Activity/Diet recommendations noted above: * Do NOT do anything where dizziness or clumsiness would be dangerous. * Rest quietly at home today, then you can be up and about tomorrow. * Have a responsible person stay with you the rest of today. * You may have had an I.V. today. If so, you may take the dressing off later today. Recommendations Call your doctor if: * Trouble breathing * Continuous vomiting for more than 24 hours * Temperature above 101 degrees * Severe abdominal pain or bloating * Pain not relieved by pain medicine ordered * There is increased drainage or redness from any incision * A large amount of rectal bleeding greater than 2-3 tablespoons. (If you had a polyp/s removed or have hemorrhoids, a small amount of blood - from the rectum is to be expected.) * You have any unanswered questions or concerns. IN THE EVENT OF A SERIOUS EMERGENCY, GO TO THE NEAREST EMERGENCY ROOM Your discharge instructions were prepared by provider Kobe Stapleton. Patient Instructions Signature Page Napoleon Moore Patient (or Guardian) Signature/Date: I have read and understand the instructions given to me by my caregivers. Caregiver/RN/Doctor Signature/Date: The above-named patient and/or guardian has received patient instructions on this date. + Original Patient Signature Page (only) stays with chart. Please make copy for patient.
[2017-08-27 15:30] VITALS: BP 134/109; PULSE 83; O2SAT 96
== END | disposition home or self-care (01) ==
LOC: C.GI 13:48
PROVIDERS: ATTEND Internal Medicine Gastroenterology
DX: R13.10 Dysphagia, unspecified (principal); K29.70 Gastritis, unspecified, without bleeding; K44.9 Diaphragmatic hernia without obstruction or gangrene; K21.9 Gastro-esophageal reflux disease without esophagitis; F17.200 Nicotine dependence, unspecified, uncomplicated; F90.9 Attention-deficit hyperactivity disorder, unspecified type; Z91.030 Bee allergy status

== ENCOUNTER → 2017-09-15 | Outpatient (CLI) | payer OTHER ==
[~2017-09-15] MED LIST changes: -FENTANYL CITRATE INJ 50 MCG/1 ML 2 ML VIAL ONE; -MIDAZOLAM HCL 1 MG/ML 2ML VIAL ONE; -PROPOFOL IV EMULSION 10 MG/ML 20 ML VIAL IV ONE; -SODIUM CHLORIDE 0.9% 500ML 500 ML IV ONE
--- NOTE | 2017-09-15 13:22 | DIAGNOSTIC IMAGING REPORT ---
Nuclear gastric emptying study: CLINICAL HISTORY: NAUSEA COMPARISON STUDY: CT of the abdomen and pelvis March 30, 2017. TECHNIQUE: Following the oral administration of 1.094 mCi of technetium 99m sulfur colloid in egg sandwich and 8 ounces of water, static abdominal images were obtained anteriorly and posteriorly at 0 minutes, 1 hour, 2 hour, and 4 hour time intervals. Gastric emptying was calculated utilizing the geometric mean method. FINDINGS: There is approximately 49% gastric activity remaining at the 1 hour time interval (normal is less than 90%), 21% at the 2 hour time interval (normal is less than 60%), and 4% remaining at the 4 hour time interval (normal is less than 10%). IMPRESSION: No evidence of delayed gastric emptying. Electronically signed by: Joey Alfaro M.D. 09/15/2017 1:21 PM Dictated Date/Time: 09/15/2017 1:20 PM
== END | disposition home or self-care (01) ==
LOC: C.NUCL 08:15
PROVIDERS: ATTEND Internal Medicine Gastroenterology
DX: R11.0 Nausea (principal)

== ENCOUNTER → 2017-11-29 | Outpatient (CLI) | payer OTHER ==
[2017-11-29 09:49] LABS: PTT PATIENT 24.8 SECONDS (21.0-31.0)
== END | disposition home or self-care (01) ==
LOC: C.LAB 06:59
PROVIDERS: ATTEND Internal Medicine Gastroenterology
DX: K75.9 Inflammatory liver disease, unspecified (principal)

== ENCOUNTER → 2017-12-07 | Outpatient (CLI) | payer OTHER | END | disposition home or self-care (01) | LOC: C.LABCP 08:48 | PROVIDERS: ATTEND Internal Medicine Gastroenterology | DX: E83.119 Hemochromatosis, unspecified (principal) ==